=== PATIENT | male | born 1955 | race Caucasian/White ===

== ENCOUNTER 2017-08-25 08:32 | Emergency (ER) | payer MEDICAID ==
[2017-08-25] MEDS ORDERED: NS 1,000 ML IV ONE (09:15)
[2017-08-25 09:16] LABS: ADD DIFF? YES; ADD MORPH? NO; ATYPICAL LYMPHOCYTE FLAG 0 (0-99); FRAGMENT RBC FLAG 0 (0-99); HEMATOCRIT 37.5 % (40.0-51.0); HEMOGLOBIN 10.9 g/dL (13.7-17.5); LEFT SHIFT FLG 20 (0-99); LIPEMIA HEMOLYSIS FLAG 70 (0-99); MEAN CELL HEMOGLOBIN 32.5 pg (27.9-34.1); MEAN CELL HEMOGLOBIN CONCENTR. 29.1 g/dL (32.4-36.7); MEAN CELL VOLUME 111.9 fL (81.5-99.8); MEAN PLATELET VOLUME 9.4 fL (8.7-11.7); PLATELET CLUMPS FLAG 80 (0-99); PLATELET COUNT 187 10^3/uL (150-400); RED BLOOD CELL COUNT 3.35 10^6/uL (4.40-6.38); RED CELL DISTRIBUTION WIDTH 16.3 % (11.5-15.2)
[2017-08-25] MEDS ORDERED: HYDROmorphONE/DILAUDID 1 MG/ML INJ IVP ONE (09:16)
--- NOTE | 2017-08-25 09:16 | EDPHY ---
H & P Stated Complaint: R lower back pain, difficulty urinating since last night HPI/ROS: CHIEF COMPLAINT: Abdominal pain, nausea HISTORY OF PRESENT ILLNESS: This patient is a 62 year old male with history of CLL arriving with his complaining of right groin pain and nausea onset this morning, a few hours prior to arrival. The pain is dull and constant, and waxes and wanes. This does not radiate to his testicle. He has not tried anything for pain relief. He cannot identify any specific palliative or provocative factors. He endorses some diarrhea, but this is not unusual for him. He denies dysuria, hematuria, fever, or vomiting. He denies history of kidney stones. REVIEW OF SYSTEMS: A ten point review of systems was performed and is negative with the exception of the items mentioned in the HPI. Past medical history: 1. Chronic lymphocytic leukemia (followed by [facility]) Past surgical history: Denies. Family history: Noncontributory. Social history: Nonsmoker. Alcohol use in moderation. 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 General Appearance: Alert. Vital signs reviewed. Eyes: Pupils equal and round, no conjunctival injection, no discharge. Anicteric. ENT, Mouth: Mucous membranes are moist, no oropharyngeal erythema or edema. Neck: No lymphadenopathy, supple. Respiratory: Lungs are clear to auscultation; no wheezes, rales, or rhonchi. Cardiovascular: Regular rate and rhythm; no murmur, rub, or gallop. Gastrointestinal: Abdomen is soft and nontender, no masses or organomegaly, bowel sounds normal. No inguinal hernia appreciated. Pulses: 2+ bilateral femoral pulses. Skin: Warm and dry, no rashes on exposed skin, normal color. Back: Nontender to palpation over the thoracolumbar spine. No CVAT. Extremities: No lower extremity edema, no calf tenderness or swelling. 2+ right femoral pulse. Neurological: Alert and oriented. Moving all four extremities easily and equally. Psychiatric: Normal affect. - Personal History Current Tetanus/Diphtheria Vaccine: Unsure Current Tetanus Diphtheria and Acellular Pertussis (TDAP): Unsure - Medical/Surgical History Hx Asthma: No Hx Chronic Respiratory Disease: No Hx Diabetes: No Hx Cardiac Disease: No Hx Renal Disease: No Hx Cirrhosis: No Hx Alcoholism: No Hx HIV/AIDS: No Hx Splenectomy or Spleen Trauma: No Other PMH: CLL - Social History Smoking Status: Never smoked Constitutional: Initial Vital Signs Temperature (C) 36.6 C 08/25/17 08:35 Heart Rate 64 08/25/17 08:35 Respiratory Rate 20 08/25/17 08:35 Blood Pressure 119/77 08/25/17 08:35 O2 Sat (%) 100 08/25/17 08:35 O2 Delivery Mode Room Air O2 (L/minute) 2 Allergies/Adverse Reactions: penicillin G Allergy (Verified 08/26/17 15:09) Home Medications: Medication Instructions Recorded CYCLOBENZAPRINE HCL [Flexeril] 5 mg PO TIDPRN PRN #12 tab 08/25/17 Hydrocodone/APAP 5/325 [Lima 1 - 2 tab PO Q4 PRN #10 tab 08/25/17 5/325 (RX)] Ondansetron Odt [Zofran Odt 4 mg 4 mg PO Q4 PRN #10 tab 08/25/17 (RX)] oxyCODONE/APAP 5/325 [Percocet 1 tab PO Q4 PRN #10 tab 08/26/17 5/325 (*)] Medical Decision Making - Diagnostics EKG Interpretation: The 12 lead EKG was interpreted by myself. See hard copy and/or "tracemaster" electronic copy for interpretation. Imaging: Discussed imaging studies w/ scallop shucker Radiologist ED Course/Re-evaluation: 62 year old male with history of CLL presents with dull right-sided groin pain onset this morning. No tenderness on exam. IV established. Plan for labs including CBC, BMP, UA. Plan to administer 0.5mg IV Dilaudid, 1L IV NS for symptom relief. 10:15 a.m.: Re-evaluated. Patient with mild right lower quadrants/groin pain, improved after Dilaudid and Toradol. We discussed the laboratory findings and the lack of hematuria in his urine sample. He continues to be concerned about a kidney stone and would like to proceed with CT scan of his abdomen and pelvis. Etiology of his pain remains unclear at this point. White blood cells 299,000, increased from 2 months ago. These results were relayed to him. 11:00 Patient's heart rate dipped to the 40s, was 64 at triage. Completed EKG. Rate returned to the upper 50s shortly after the brief episode of bradycardia. He was asymptomatic at the time. 11:[address] Hubbard, radiologist. CT abdomen/pelvis negative for acute processes, lymphadenopathy noted. No nephro or ureterolithiasis. 11:57 Reassessed patient. He complains of increased pain during his CT scan. It has resolved again slightly since then. Currently, he rates his pain at 4/10 severity. I discussed imaging and laboratory results. On reassessment, the patient indicates his hip, right buttock, and/or or thigh as the location of the pain. His at bedside states the pain was localized to his right buttock just below the iliac crest this morning, prior to the presentation in the department. Completed full neurologic assessment. The patient is neurologically intact, sensorimotor equal bilaterally. He is 5/5 bilateral lower extremity strength with testing of hip flexion, hip extension, knee flexion, knee extension, plantar flexion, dorsiflexion, and EHL. His sensation is intact to light and sharp touch over both lower extremities. Reflexes are symmetric. It was my initial impression that his pain was in the lower abdomen and groin with some right flank pain also. My concern was for ureterolithiasis, pyelonephritis, urinary tract infection, appendicitis, and hernia. However, it now seems that his pain is more suggestive of lumbar discogenic pain. He is given prescriptions for Flexeril, Lima, and Zofran. We discussed the use of lidocaine patches. We reviewed the danger signs that should prompt him to be immediately re-evaluated. He will follow up with his primary care physician. - Data Points Laboratory Results: Laboratory Results 08/25/17 Unknown 08/25/17 09:05 Medications Given: Discontinued Medications Hydrocodone Bitart/Acetaminophen (Lima 5/325) 1 tab PO EDNOW ONE Stop: 08/25/17 13:18 Last Admin: 08/25/17 13:20 Dose: 1 tab Hydromorphone HCl (Dilaudid) 0.5 mg IVP EDNOW ONE Stop: 08/25/17 09:17 Last Admin: 08/25/17 09:27 Dose: 0.5 mg Sodium Chloride (Ns) 1,000 mls @ 0 mls/hr IV ONCE ONE; Wide Open PRN Reason: Protocol Stop: 08/25/17 09:16 Last Admin: 08/25/17 09:31 Dose: 1,000 mls Ketorolac Tromethamine (Toradol) 15 mg IVP EDNOW ONE Stop: 08/25/17 09:31 Last Admin: 08/25/17 09:34 Dose: 15 mg Ondansetron HCl (Zofran) 4 mg IVP EDNOW ONE Stop: 08/25/17 09:29 Last Admin: 08/25/17 09:31 Dose: 4 mg Ondansetron HCl (Zofran) 4 mg IVP EDNOW ONE Stop: 08/25/17 12:46 Last Admin: 08/25/17 12:47 Dose: 4 mg Departure - Departure Disposition: Home, Routine, Self-Care Clinical Impression: Right groin pain Abdominal pain Qualifiers: Abdominal location: right lower quadrant Qualified Code(s): R10.31 - Right lower quadrant pain Condition: Good Instructions: Acute Abdominal Pain (ED), Acute Low Back Pain (ED), Groin Pain ( ED) Additional Instructions: 1. Take Lima as prescribed as needed for severe pain. 2. Take Ibuprofen or Tylenol as directed below as needed for pain. Do not take Tylenol with Lima as this medication already contains acetaminophen. Abdominal pain precautions: Sometimes we are unable to diagnose an obvious cause of abdominal pain in the Emergency Department. Based upon our evaluation today, we see no obvious explanation for your pain. Because more serious conditions can be difficult to diagnose early in the course of their presentation, we ask that you return to the Emergency Department in 8-12 hours for a recheck if you are still having pain. This is necessary to exclude the development of a more serious condition such as appendicitis or other intra-abdominal emergency. In the event your pain markedly increases before that time or you develop intractable vomiting or fever return to the Emergency Department immediately. Back pain precautions: Return to the emergency department for severe pain, fever, numbness, difficulty walking or weakness, loss of control of your bowels or bladder, change in location or nature of pain or other concerns. Adult Pain & Fever Control: We recommend Acetaminophen (Tylenol) and Ibuprofen (Motrin,Advil) for pain and fever control. When fever is high or pain severe, both drugs can be used at the same time, but at different intervals. Please note the time differences. Your dose is: Acetaminophen 650mg every 4 to 6 hours Ibuprofen 400mg every 8 hours with food Note: do not take Acetaminophen with Hydrocodone (Vicodin, Lortab) or Oxycodone (Percocet). These medications also contain Acetaminophen. No more than 3000mg of Acetaminophen should be taken in 24 hours (for an adult). Referrals: Sujata Moreland MD [[facility] Primary Care Provider] - As per Instructions Prescriptions: CYCLOBENZAPRINE HCL [Flexeril] 5 mg PO TIDPRN PRN #12 tab PRN Reason: muscle spasm Hydrocodone/APAP 5/325 [Lima 5/325 (RX)] 1 - 2 tab PO Q4 PRN #10 tab PRN Reason: pain Ondansetron Odt [Zofran Odt 4 mg (RX)] 4 mg PO Q4 PRN #10 tab PRN Reason: nausea Report Scribed for: Ann Marie Garcia Report Scribed by: Tiana Gutierrez Date of Report: 08/25/17 Time of Report: 09:25 Physician Review and Approval Statement: 08/25/17 09:15 Portions of this note were transcribed by the medical staff assistant. I, Dr. Ann Marie Garcia, personally performed the history, physical exam, and medical decision- making; and confirmed the accuracy of the information in the transcribed note.
[2017-08-25] MEDS ORDERED: ONDANSETRON 4 MG/2 ML VIAL ONE ×2 (09:17→12:43)
[2017-08-25 09:26] LABS: ADD SCAN? NO
[2017-08-25 09:26] LABS: ANION GAP 11 mEq/L (8-16); CALCIUM 8.8 mg/dL (8.5-10.4); CARBON DIOXIDE 22 mEq/l (22-31); CHLORIDE 108 mEq/L (97-110); CREATININE 0.9 mg/dL (0.7-1.3); GLOMERULAR FILTRATION RATE > 60; GLUCOSE 136 mg/dL (70-100); POTASSIUM 4.4 mEq/L (3.5-5.2); SODIUM 141 mEq/L (134-144)
[2017-08-25] MEDS ORDERED: ONDANSETRON 4 MG/2 ML VIAL IVP ONE ×2 (09:28→12:45)
[2017-08-25] MEDS ORDERED: KETOROLAC 15 MG/1 ML SDV IVP ONE (09:30)
[2017-08-25 09:34] LABS: COLOR YELLOW; LEUKOCYTE ESTERASE,URINE NEGATIVE (NEGATIVE); NITRITE,URINE NEGATIVE (NEGATIVE)
[2017-08-25 10:26] LABS: PLATELET ESTIMATE ADEQUATE (ADEQ); SMUDGE CELLS 2+
[2017-08-25 10:27] LABS: STOMATOCYTES 1+
--- NOTE | 2017-08-25 11:04 | CPEKG ---
Heart Rate: 58 RR Interval: 1034 P-R Interval: 152 QRSD Interval: 104 QT Interval: 468 QTC Interval: 460 P Dolphin: 38 QRS Dolphin: 43 T Wave Dolphin: 54 EKG Severity - NORMAL ECG - EKG Impression: SINUS RHYTHM Electronically Signed By: Ann Marie Garcia 25-Aug-2017 16:22:53
[2017-08-25] MEDS ORDERED: HYDROCODONE/APAP 5/325 TAB PO ONE (13:17)
[2017-08-25 14:10] VITALS: BP 119/67; PULSE 69; RESP 18; TEMP 98.2; O2SAT 98
== END 2017-08-25 15:22 | disposition home or self-care (01) ==
DX: R10.31 Right lower quadrant pain (principal); E86.9 Volume depletion, unspecified; Z85.6 Personal history of leukemia
CPT/HCPCS: 96374; J1170; J1885; J2405

== ENCOUNTER 2017-08-26 14:54 | Emergency (ER) | payer MEDICAID ==
[2017-08-26 15:08] VITALS: RESP 16; TEMP 98.4; O2SAT 94
--- NOTE | 2017-08-26 15:39 | EDPHY ---
H & P Time Seen by Provider: 08/26/17 15:25 HPI/ROS: CHIEF COMPLAINT: Right abdominal and back pain HISTORY OF PRESENT ILLNESS: The patient is a 62 y/o male with a history of CLL, complaining of right sided back pain since yesterday morning. Onset of right-sided back pain yesterday morning while he was in bed. The pain increases with movement and is alleviated when he remains still. He now has a tingling sensation of his right anterior thigh the. He was in this ED yesterday and had an abdominopelvic CT study preformed. He was prescribed Huddleston, which has provided some relief. After returning home he had less pain while lying down. There is still right back and leg pain while walking or sitting. 3 days before the pain began, he did carry several heavy water jugs. Denies buttock pain, pain radiating down the entire right leg, weakness, fever or other pertinent symptoms. Prior medical records reviewed including ED visit with Dr. Garcia on 08/25/17. REVIEW OF SYSTEMS: Aside from elements discussed in the HPI, a comprehensive 10-point review of systems was reviewed and is negative. Past Medical/Surgical History: Chronic lymphocytic leukemia Social History: Retired, nonsmoker, Smoking Status: Never smoked Physical Exam: General Appearance: Alert, a does not appear in pain Eyes: Pupils equal and round, no conjunctival pallor ENT, Mouth: Mucous membranes moist Neck: Normal inspection Respiratory: Lungs are clear to auscultation Cardiovascular: Regular rate and rhythm Gastrointestinal: Abdomen is soft and non-tender Back: Normal inspection, no tenderness, right paraspinous pain with ROM Neurological: A&O, 2+ patellar reflexes, motor 5/5 including dorsiflexion on his right foot Skin: Warm and dry, no rash Extremities: Normal inspection Psychiatric: Mood and affect normal Constitutional: Initial Vital Signs Temperature (C) 36.9 C 08/26/17 15:05 Heart Rate 70 08/26/17 15:05 Respiratory Rate 16 08/26/17 15:05 Blood Pressure 128/72 H 08/26/17 15:05 O2 Sat (%) 94 08/26/17 15:05 O2 Delivery Mode Room Air Allergies/Adverse Reactions: penicillin G Allergy (Verified 08/26/17 15:09) Home Medications: Medication Instructions Recorded CYCLOBENZAPRINE HCL [Flexeril] 5 mg PO TIDPRN PRN #12 tab 08/25/17 Hydrocodone/APAP 5/325 [Huddleston 1 - 2 tab PO Q4 PRN #10 tab 08/25/17 5/325 (RX)] Ondansetron Odt [Zofran Odt 4 mg 4 mg PO Q4 PRN #10 tab 08/25/17 (RX)] oxyCODONE/APAP 5/325 [Percocet 1 tab PO Q4 PRN #10 tab 08/26/17 5/325 (*)] Medical Decision Making ED Course/Re-evaluation: The patient is a 62 y/o male presenting with right-sided back pain. He has normal motor and a 2+ patellar reflex. His symptoms are c/w right-sided sciatica. 600mg PO Motrin and Lidocaine patch administered. Reassessed patient and discussed taking ibuprofen and using a Lidocaine patch for his back pain. I have also prescribed him Percocet for severe back pain. Return precautions provided; patient is comfortable with this plan. Differential Diagnosis: Differential diagnosis for back pain includes muscular pain, herniated disc, epidural abscess, discitis, spine fracture, intra-abdominal causes and urinary tract infection. - Data Points Medications Given: Discontinued Medications Ibuprofen (Motrin) 600 mg PO EDNOW ONE Stop: 08/26/17 15:50 Last Admin: 08/26/17 16:03 Dose: 600 mg Lidocaine (Lidoderm 5%) 1 ea TD EDNOW ONE Stop: 08/26/17 15:50 Last Admin: 08/26/17 16:04 Dose: 1 ea Departure - Departure Disposition: Home, Routine, Self-Care Clinical Impression: Sciatica Qualifiers: Laterality: right Qualified Code(s): M54.31 - Sciatica, right side Condition: Good Instructions: Low Back Strain (ED) Additional Instructions: Take ibuprofen, 600mg every 6-8 hours, as needed for pain Use a Lidocaine patch, you can buy these at a pharmacy. Take Huddleston as prescribed, only if the Lidocaine and ibuprofen are not providing relief. Return to the emergency department for severe pain, fever, numbness, difficulty walking, change in location or nature of pain or other concerns. Referrals: LILY REYES [Primary Care Provider] - As per Instructions Prescriptions: oxyCODONE/APAP 5/325 [Percocet 5/325 (*)] 1 tab PO Q4 PRN #10 tab PRN Reason: pain Report Scribed for: Radha Vieyra Report Scribed by: Martha Alcala Date of Report: 08/26/17 Time of Report: 15:39 Physician Review and Approval Statement: 08/26/17 15:39 Portions of this note were transcribed by a medical coding auditor. I personally performed a history, physical exam, medical decision making, and confirmed accuracy of information the transcribed note.
[2017-08-26] MEDS ORDERED: LIDOCAINE 5% 1 EA PATCH TD ONE (15:49)
[2017-08-26] MEDS ORDERED: IBUPROFEN 600 MG TAB PO ONE (15:49)
[2017-08-26 16:27] VITALS: BP 124/77; PULSE 76
[2017-08-26] MEDS ORDERED: PATCH REMOVAL 1 EA PATCH TD SCH (21:00)
== END 2017-08-26 16:26 | disposition home or self-care (01) ==
DX: M54.31 Sciatica, right side (principal)

== ENCOUNTER → 2017-09-12 | Outpatient (CLI) | payer MEDICAID ==
[~2017-09-12] MED LIST: GADOBUTROL 10 ML VIAL IVP ONE
== END ==
LOC: FIMAGING 19:18
PROVIDERS: ATTEND Internal Medicine Hematology & Oncology
DX: M51.36 Other intervertebral disc degeneration, lumbar region (principal); R59.0 Localized enlarged lymph nodes; C91.10 Chronic lymphocytic leukemia of B-cell type not having achieved remission
CPT/HCPCS: A9585

== ENCOUNTER 2018-01-12 11:43 | Inpatient (IN) | payer MEDICAID ==
[2018-01-12 12:30] LABS: PLATELET COUNT 80 10^3/uL (150-400)
--- NOTE | 2018-01-12 12:41 | EDPHY ---
H & P Stated Complaint: cough/ subjective fever last week Time Seen by Provider: 01/12/18 11:53 HPI/ROS: CHIEF COMPLAINT: Cough, shortness of breath HISTORY OF PRESENT ILLNESS: 62-year-old male with CLL presents with a one-week history of cough. Onset of nasal congestion and a dry cough 1 week ago. Associated with gradually increasing shortness of breath. The shortness of breath occurs when walking up 2 flights of stairs. He needs to stop transiently and then is able to continue walking. Also has generalized weakness. No prior history of severe anemia. No fever or chills. No chest pain, bloody stools or black stools. REVIEW OF SYSTEMS: complete 10 point ROS negative except at noted in the HPI - Personal History Current Tetanus/Diphtheria Vaccine: Yes - Medical/Surgical History Hx Asthma: No Hx Chronic Respiratory Disease: No Hx Diabetes: No Hx Cardiac Disease: No Hx Renal Disease: No Hx Cirrhosis: No Hx Alcoholism: No Hx HIV/AIDS: No Hx Splenectomy or Spleen Trauma: No Other PMH: CLL, anemia - Social History Smoking Status: Never smoked - Physical Exam Exam: General Appearance: Alert, pleasant, pale Eyes: Pupils equal and round, conjunctival pallor ENT, Mouth: Mucous membranes moist Neck: Normal inspection Respiratory: Lungs are clear to auscultation Cardiovascular: Regular rate and rhythm Gastrointestinal: Abdomen is soft and nontender Neurological: A&O, nonfocal exam Skin: Warm and dry, no rash Extremities: Nontender, no pedal edema Psychiatric: Mood and affect normal Constitutional: Initial Vital Signs Temperature (C) 36.7 C 01/12/18 11:48 Heart Rate 95 01/12/18 11:48 Respiratory Rate 18 01/12/18 11:48 Blood Pressure 99/56 L 01/12/18 11:48 O2 Sat (%) 96 01/12/18 11:48 O2 Delivery Mode Room Air Allergies/Adverse Reactions: penicillin G Allergy (Verified 01/12/18 11:48) Home Medications: Medication Instructions Recorded Herbals/Supplements -Info Only 1 ea PO DAILY 01/12/18 Medical Decision Making - Diagnostics Imaging Results: Chest x-ray independently reviewed by me reveals a lingular infiltrate. ED Course/Re-evaluation: This patient presents with URI symptoms and cough, associated with exertional shortness of breath. Clinical scenario suggests anemia and pneumonia. Chest x-ray reveals a lingular infiltrate. He is nontoxic-appearing and oxygen saturation is 93% on room air. Does not meet SIRS criteria. Hct 20, risks and benefits discussed with patient, he agrees with transfusion. 1 u PRBC ordered. Blood cultures drawn and Rocephin and Zithromax given for pneumonia. Stable throughout his emergency department stay. The hospitalist service was consulted for admission. Differential Diagnosis: Differential diagnosis includes though it is not limited to pneumonia, pneumothorax, pulmonary embolism, aortic dissection, pericarditis, acute coronary syndrome. - Data Points Laboratory Results: Laboratory Results 01/12/18 12:20 01/12/18 12:20 01/12/18 13:00 Patient ABO/Rh Pending Rh Phenotype Pending Antibody Screen POSITIVE Antibody Identification UNDETERMINED Antibody ID Referred Pending Red Cell Ag Pheno DNA Pending RICHARD, IgG Specific IGG NEGATIVE (NEGATIVE) RICHARD, IgG Interpret Pending RICHARD, Polyspecific POSITIVE H (NEGATIVE) RICHARD, Poly Interpret Pending RICHARD, Complement Interp Pending Crossmatch See Detail Crossmatch IS Only See Detail Enhanced Crossmatch See Detail Medications Given: Acetaminophen (Tylenol) 650 mg PO Q4HRS PRN PRN Reason: Pain, Mild/Fever, Can Take PO Stop: 07/11/18 15:36 Last Admin: 01/12/18 19:58 Dose: 650 mg Folic Acid (Folic Acid) 1 mg PO DAILY DIANA Stop: 07/11/18 16:29 Last Admin: 01/12/18 17:02 Dose: 1 mg Prednisone (Prednisone) 60 mg PO DAILY DIANA Stop: 07/11/18 16:59 Last Admin: 01/12/18 17:02 Dose: 60 mg Discontinued Medications Azithromycin (Zithromax) 500 mg PO EDNOW ONE PRN Reason: Protocol Stop: 01/12/18 13:02 Last Admin: 01/12/18 13:19 Dose: 500 mg Ceftriaxone Sodium/Dextrose (Rocephin 1 Gm (Premix)) 50 mls @ 100 mls/hr IV EDNOW ONE PRN Reason: Protocol Stop: 01/12/18 13:30 Last Admin: 01/12/18 13:18 Dose: 50 mls Sodium Chloride (Ns) 1,000 mls @ 125 mls/hr IV CONT DIANA Stop: 01/12/18 23:44 Last Admin: 01/12/18 16:57 Dose: 1,000 mls Departure - Departure Disposition: [facility] Inpatient Acute Clinical Impression: Severe anemia Pneumonia Qualifiers: Pneumonia type: due to unspecified organism Laterality: left Lung location: lower lobe of lung Qualified Code(s): J18.1 - Lobar pneumonia, unspecified organism Condition: Fair
[2018-01-12] MEDS ORDERED: AZITHROMYCIN 250 MG TAB PO ONE (13:01)
[2018-01-12] MEDS ORDERED: ONDANSETRON DISINTEGRATING 4 MG TAB PO PRN (15:37)
[2018-01-12] MEDS ORDERED: ACETAMINOPHEN 325 MG TAB PO PRN (15:37)
[2018-01-12] MEDS ORDERED: ONDANSETRON 4 MG/2 ML VIAL IVP PRN (15:37)
[2018-01-12] MEDS ORDERED: NS 1,000 ML IV SCH (15:45)
[2018-01-12] MEDS: predniSONE 20 MG TAB PO SCH (17:02)
[2018-01-12] MEDS: FOLIC ACID 1 MG TAB PO SCH (17:02)
--- NOTE | 2018-01-12 17:07 | GHP ---
[f rep st] HISTORY AND PHYSICAL DATE OF ADMISSION: 01/12/2018 SUBJECTIVE: The patient is a 62-year-old gentleman with 2-year history of untreated CLL, who present s to the hospital with dyspnea and cough. He has been noted to have dry cough going on for about a w [place]. He has not had fever, chills. He has had shortness of breath. He has had no melena, no bright red blood per rectum, and no hematemesis. No coffee-ground emesis. He has not been tried on transf usions in the past. He has not had chest pain. REVIEW OF SYSTEMS: Complete 10-point review of systems conducted and negative except as noted in the HPI. PAST MEDICAL HISTORY: CLL, not on therapy. ALLERGIES: Penicillin G. HOME MEDICATIONS: None. He does note he has been taking some coffee enemas, as this is apparently e ffective for CLL according to some people on the internet. 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 He drinks occasional alcohol, does not smoke cigarettes. FAMILY HISTORY: Reviewed and unremarkable. PHYSICAL EXAMINATION: VITAL SIGNS: Temp 36.7, blood pressure 99/56, pulse 95, breathing 18 times a minute, 96% on room air. GENERAL: Pale, in no acute distress. HEENT: Sclerae anicteric. Oropharynx clear. Mucous membranes are moist. NECK: Supple without lymphadenopathy or JVD. LUNGS: Clear to auscultation bilaterally, with some crackles in the left axilla. HEART: S1, S2. ABDOMEN: Soft, nontender, nondistended. EXTREMITIES: Lower extremities without edema. Calves are nontender. SKIN: Without rash. NEUROLOGIC: Nonfocal. LABORATORY DATA: White count is 572; his last white count was about a month ago, it was 433; a month prior to that, it was 380; and has been steadily ascending since being 94 in March. Hemoglobin is 4. 6; it was 7.2 a month ago. Platelets are 80. MCV is elevated at 132.9. He has a lymphocyte predomi nance. He does have neutrophilia as well. Venous lactate 0.9. Sodium 143, potassium 4.2, chloride 109, bicarb 21, BUN 14, creatinine 1.1. IMAGING STUDIES: Chest x-ray interpreted by me shows possible left lingular infiltrate. I have discussed the case with Dr. Kiersten Vieyra. ASSESSMENT AND PLAN: 62-year-old gentleman with chronic lymphocytic leukemia, presents with the acut e on chronic anemia and likely community-acquired pneumonia. 1. Acute acquired pneumonia. The patient has indeterminate chest x-ray, but I recognize his degree of immunocompromise. I think it is reasonable to treat him for community-acquired pneumonia with cef triaxone and azithromycin. Blood cultures have been drawn. He is not septic. 2. Anemia. This is likely secondary to poor production. He has no signs of blood loss. He is foll owing his hemoglobin over time. It has steadily decreased from 13 in January of 2017 to 4.6 today. I wi ll transfuse him a couple of units of packed cells. 3. Thrombocytopenia. This is likely secondary to chronic lymphocytic leukemia. We will follow. Th is represents a contraindication to pharmacologic deep venous thrombosis prophylaxis. 4. Chronic lymphocytic leukemia. The patient's white count is markedly elevated with now symptomati c anemia. May be a candidate for consideration of ibrutinib therapy which has been discussed in the past. Oncology will see him. DISPOSITION: Inpatient status. /[id number]
--- NOTE | 2018-01-12 17:17 | GCON ---
[f rep st] CONSULTATION HEMATOLOGY ONCOLOGY NOTE DATE OF CONSULTATION: 01/12/2018 REASON FOR CONSULTATION: 1. Chronic lymphocytic leukemia. 2. Hemolytic anemia. HISTORY OF PRESENT ILLNESS: The patient is a pleasant 62-year-old gentleman who has been followed by my partner, Dr. Naif Mckeon. The patient was diagnosed with Miller stage I CLL in April of 2015. He presented with lymphocytosis. The patient had a subsequent peripheral blood flow cytometry which confirmed the diagnosis of CLL. C ytogenetics showed an 11 Q minus in approximately 86% of cells and trisomy 12 in 30% of cells. His C T scan revealed moderate adenopathy with no splenomegaly. The patient has had a steady rise in his white blood cell count. He has declined conventional treatm ent and has been taking CBD oil and performing coffee enemas to treat his CLL. He was last seen by Dr. Mckeon in October of this year, at which time ibrutinib therapy was recomm ended. The patient has not started this therapy. The patient presented to the hospital today with 1-week history of a nonproductive cough. He had a l ow-grade fever. He did not have any chills. He had progressive exertional dyspnea. In the emergency department, a CBC was drawn which revealed a white count of 571,000, hemoglobin of 4 .6, hematocrit of 20.6, platelet count of 80,000. His differential shows a predominance of lymphocyt es consistent with his diagnosis of CLL. Further testing reveals a positive Johnna test. The patient has been admitted to the hospital. IV antibiotic therapy has been started (ceftriaxone a nd azithromycin). In the emergency department, a chest x-ray was performed which revealed a small nodular density in th e right hemithorax for which followup was recommended. When seen this evening, he is comfortable. He denies chest pain. He denies dyspnea at rest. He den ies any active fevers or chills. He denies abdominal pain or bloating. He denies lymphadenopathy. PAST MEDICAL HISTORY: Hypercholesterolemia. FAMILY MEDICAL HISTORY: The patient's brother and mother had coronary artery disease. His father mayer d malignancy, type unknown. SOCIAL HISTORY: The patient is a nonsmoker. He drinks a few alcoholic beverages a day. He is marri ed to [place]. 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 He has no children. REVIEW OF SYSTEMS: As outlined above. Remainder of 10-point review of systems otherwise negative. PHYSICAL EXAM: GENERAL: The patient is resting comfortably in bed. He is in no acute distress. He is breathing comfortably. HEENT: Conjunctival pallor is present with no scleral icterus. HEART: Regular without murmur. LUNGS: Clear bilaterally. ABDOMEN: Obese. Exam is somewhat limited by hector dy habitus. Spleen is nonpalpable. SKIN: No rash, ecchymosis, or petechiae. NEUROLOGIC: Patient is alert, oriented, and appropriate. IMAGING AND LABORATORY STUDIES: As outlined above. Chest x-ray as outlined above. DIAGNOSES: 1. Chronic lymphocytic leukemia (untreated). 2. 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 3. Cough with abnormal chest x-ray finding. 4. Small nodular density right hemithorax of uncertain etiology visualized on chest x-ray. The patient is a 62-year-old gentleman with untreated chronic lymphocytic leukemia, who presents with symptomatic anemia. He appears to have developed autoimmune hemolytic anemia based on his positive Johnna test. I have sent a serum bilirubin, LDH, haptoglobin, reticulocyte to evaluate this further. His case was discussed with Dr. Noonan of the hospitalist service, as well as with the blood bank. H is positive Johnna test makes his crossmatch difficult, but the blood bank indicates they have 2 comp atible units for the patient ready for transfusion. Transfusion has been ordered by Dr. Noonan. I a gree with transfusion, given the fairly severe degree of the patient's anemia and its symptomatic collette ure. I discussed the patient's diagnosis with him at length. At this point, he is willing to consider con ventional treatment with ibrutinib and would be willing to start this in the outpatient setting once discharged. He will follow up with Dr. Mckeon. I will notify Dr. Mckeon of his admission. Though the patient does have a very high lymphocytosis, this has been a gradual development and does not require urgent treatment at this time. Of greater concern is the development of hemolytic anemia. I have recommended the institution of pre dnisone 60 mg daily for 4-5 days. I have also recommended we start supplemental folic acid. The vee e effect profile of prednisone was reviewed. The patient is willing to take prednisone. It will be started this evening. He will be monitored closely. He will follow up with Dr. Mckeon upon discha rge to discuss the initiation of ibrutinib therapy. He had multiple questions which were answered. Total time for today's visit was approximately 45 minutes of which greater than 50% was spent adolescent counselor ing and care coordination. /[id number]/MODL
--- NOTE | 2018-01-12 17:54 | PDMN ---
Medical Necessity Medical necessity: C/M review: est. > 2 MN LOS for acute likely community acquired pneumonia, anemia likely secondary to poor production, , thrombocytopenia likely secondary to chronic lymphocytic leukemia requiring planned Oncology consult, 2 units PRBCs, IV fluids, ongoing Azithramycin, IV Ceftriaxone, pulse oximetry, comorbid untreated chronic lymphocytic leukemia per H/P.
[2018-01-13 07:48] LABS: PLATELET COUNT 72 10^3/uL (150-400)
[2018-01-13 07:57] LABS: INR 1.08 (0.83-1.16); PROTIME(PATIENT) 14.2 SEC (12.0-15.0)
[2018-01-13] MEDS ORDERED: Herbals/Supplements -Info Only PO SCH (09:00)
[2018-01-13] MEDS ORDERED: ENOXAPARIN 40 MG/0.4 ML SYR SC SCH (09:00)
--- NOTE | 2018-01-13 10:16 | HOSPPROG ---
Hospitalist Progress Note Assessment/Plan: 62 yo M w CLL admitted w fatigue, anemia, CAP CAP: ceftriaxone/azithro CLL: markedly elevated white count w anemia and thrombocytopenia pred and folate started needs outpt therapy d/w dr holliday hemolytic anemia: pred started give add'l unit packed cells now proph: no LMWH given thrombocytopenia dispo: inpt Subjective: case d/w dr holliday Objective: Vital Signs Temp Pulse Resp BP Pulse Ox 36.8 C 74 16 98/62 L 96 01/13/18 07:25 01/13/18 07:25 01/13/18 07:25 01/13/18 07:25 01/13/18 07:25 Microbiology 01/12/18 16:40 Respiratory Panel (PCR) - Final Nasal, Sinus - Swab No Organism Detected Laboratory Results 01/13/18 07:38 01/13/18 07:38 01/12/18 01/13/18 01/14/18 05:59 05:59 05:59 Intake Total 2225 Output Total 300 Balance 1925 PT 14.2 SEC (12.0-15.0) 01/13/18 07:38 INR 1.08 (0.83-1.16) 01/13/18 07:38 - Physical Exam Constitutional: no apparent distress, appears nourished Eyes: PERRL, anicteric sclera Ears, Nose, Mouth, Throat: moist mucous membranes, hearing normal Cardiovascular: regular rate and rhythym, no murmur, rub, or gallop Respiratory: other (crackles L base, no wheeze, good air movement) Gastrointestinal: normoactive bowel sounds, soft, non-tender abdomen Genitourinary: no bladder fullness, No adames in urethra Skin: warm, normal color Musculoskeletal: full muscle strength, no muscle tenderness Neurologic: AAOx3, sensation intact bilaterally ICD10 Worksheet Patient Problems: Problems Problem Status Onset Pneumonia Acute Severe anemia Acute Abdominal pain Acute Right groin pain Acute
[2018-01-13] MEDS: AZITHROMYCIN IV 500 MG in NS 250 ML IV SCH (10:22)
[2018-01-13] MEDS: FOLIC ACID 1 MG TAB PO SCH (10:29)
[2018-01-13] MEDS: predniSONE 20 MG TAB PO SCH (10:29)
--- NOTE | 2018-01-13 11:14 | SOAPPROG ---
SOAP Progress Note Assessment/Plan: Assessment: 1.CLL 2.Possible CAP 3.Hemolytic anemia, Johnna positive, Toro syndrome Plan:Transfuse 1 more unit prbc, cont pred folate, possibly home soon with op follow up, needs treatment. Poor retic response prob related to marrow involvement. May need Rituxan if not responding 01/13/18 11:10 Subjective: Feels better post txn Objective: Vital Signs Temp Pulse Resp BP Pulse Ox 98.2 F 74 16 98/62 L 96 01/13/18 07:25 01/13/18 07:25 01/13/18 07:25 01/13/18 07:25 01/13/18 07:25 Microbiology 01/12/18 16:40 Respiratory Panel (PCR) - Final Nasal, Sinus - Swab No Organism Detected Laboratory Results 01/13/18 07:38 01/13/18 07:38 01/12/18 01/13/18 01/14/18 05:59 05:59 05:59 Intake Total 2225 Output Total 300 Balance 1925 PT 14.2 SEC (12.0-15.0) 01/13/18 07:38 INR 1.08 (0.83-1.16) 01/13/18 07:38 Physical Exam - Physical Exam General Appearance: alert, no apparent distress, other (pale) Respiratory: lungs clear Cardiac/Chest: regular rate, rhythm Abdomen: normal bowel sounds, non-tender ICD10 Worksheet Patient Problems: Problems Problem Status Onset Pneumonia Acute Severe anemia Acute Abdominal pain Acute Right groin pain Acute
--- NOTE | 2018-01-13 15:49 | ASMTCMCOM ---
CM Note CM Note Notes: Pt has been admitted with possible PNA and anemia. He has a hx of CLL. Will receive transfusion and IV ABX. Anticipate he will transition to po ABX and d/c without any CM needs. CM will be available for any change in needs. Date Signed: 01/13/2018 03:49 PM Electronically Signed By:DANDRE Otero
[2018-01-14 04:11] LABS: PLATELET COUNT 72 10^3/uL (150-400)
[2018-01-14 08:20] VITALS: BP 95/55
[2018-01-14] MEDS: predniSONE 20 MG TAB PO SCH (08:46)
[2018-01-14] MEDS: FOLIC ACID 1 MG TAB PO SCH (08:46)
--- NOTE | 2018-01-14 09:50 | HOSPPROG ---
Hospitalist Progress Note Assessment/Plan: 62 yo M w CLL admitted w fatigue, anemia, CAP CAP: ceftriaxone/azithro CLL: markedly elevated white count w anemia and thrombocytopenia pred and folate started needs outpt therapy d/w dr holliday hemolytic anemia: pred started give add'l unit packed cells now proph: no LMWH given thrombocytopenia dispo: home today > 30 minuyes Subjective: feels well. amenable to dc. small amount of diarrhea overnight, no abdominal Objective: Vital Signs Temp Pulse Resp BP Pulse Ox 36.8 C 78 16 95/55 L 93 01/14/18 08:18 01/14/18 08:18 01/14/18 08:18 01/14/18 08:18 01/14/18 08:18 Laboratory Results 01/14/18 03:53 01/14/18 03:53 01/13/18 01/14/18 01/15/18 05:59 05:59 05:59 Intake Total 2225 1100 Output Total 300 Balance 1925 1100 PT 14.2 SEC (12.0-15.0) 01/13/18 07:38 INR 1.08 (0.83-1.16) 01/13/18 07:38 - Physical Exam Constitutional: no apparent distress, appears nourished Eyes: PERRL, anicteric sclera Ears, Nose, Mouth, Throat: moist mucous membranes, hearing normal Cardiovascular: regular rate and rhythym, no murmur, rub, or gallop Respiratory: no respiratory distress, other (crackles L base) Gastrointestinal: normoactive bowel sounds, soft, non-tender abdomen Genitourinary: no bladder fullness, No adames in urethra Skin: warm, normal color Musculoskeletal: full muscle strength Neurologic: AAOx3, sensation intact bilaterally Psychiatric: interacting appropriately ICD10 Worksheet Patient Problems: Problems Problem Status Onset Pneumonia Acute Severe anemia Acute Abdominal pain Acute Right groin pain Acute
--- NOTE | 2018-01-14 10:13 | GDS ---
[f rep st] DISCHARGE SUMMARY DISCHARGE DIAGNOSES: 1. Chronic lymphocytic leukemia. 2. Autoimmune hemolytic anemia. 3. Community-acquired pneumonia. Please see admission history and physical by Dr. Amado Noonan. The patient presented with shortnes s of breath. He was found to have a low hemoglobin of 4.6. This is without evidence of bleeding. R ecent outpatient Johnna test was positive. He received 3 units of packed cells with a good bump in h is hematocrit. His white count was markedly elevated at 572,000. This has been trending up steadily since 2014 when he was diagnosed with CLL. He has thus far not been treated. Chest x-ray did demon strate a mild left lower lobe infiltrate. He did have a cough and crackles in that region so he was treated for community-acquired pneumonia. Blood cultures were negative. The patient did not have se psis. He is discharged home on prednisone with plans to change his outpatient oncology followup from next week to this week. He is also given a prescription for lactate and levofloxacin. He is penici llin allergic. He has followup with Oncology. /[id number]/MODL
[2018-01-14] MEDS: AZITHROMYCIN IV 500 MG in NS 250 ML IV SCH (10:23)
--- NOTE | 2018-01-14 10:31 | ASMTLACE ---
LACE Length of stay for Answers: 2 days current admission Comorbidities - select Answers: Any tumor (including all that apply lymphoma or leukemia) # of Emergency department Answers: 1-2 visits in the last 6 months Score: 5 Date Signed: 01/14/2018 10:30 AM Electronically Signed By:Claudine Taveras RN
--- NOTE | 2018-01-14 10:32 | ASMTCMCOM ---
CM Note CM Note Notes: Chart reviewed. Patient medically ready for discharge to home. Changed to oral antibiotics. No needs identified at this time. CM available should need arise. Plan: Home without needs Date Signed: 01/14/2018 10:32 AM Electronically Signed By:Claudine Taveras RN
--- NOTE | 2018-01-14 11:22 | SOAPPROG ---
SOAP Progress Note Assessment/Plan: Assessment: 1.CLL 2.Possible CAP 3.Hemolytic anemia, Johnna positive, Toro syndrome. Hemoglobin 7 today Plan:D/C today on prednisone 60 mg daily, have recommended follow up with Dr Mckeon this week 01/13/18 11:10 01/14/18 11:20 Subjective: Feels ok Objective: Vital Signs Temp Pulse Resp BP Pulse Ox 98.3 F 78 16 95/55 L 93 01/14/18 08:18 01/14/18 08:18 01/14/18 08:18 01/14/18 08:18 01/14/18 08:18 Laboratory Results 01/14/18 03:53 01/14/18 03:53 01/13/18 01/14/18 01/15/18 05:59 05:59 05:59 Intake Total 2225 1100 Output Total 300 Balance 1925 1100 PT 14.2 SEC (12.0-15.0) 01/13/18 07:38 INR 1.08 (0.83-1.16) 01/13/18 07:38 Physical Exam - Physical Exam General Appearance: alert, no apparent distress ICD10 Worksheet Patient Problems: Problems Problem Status Onset Pneumonia Acute Severe anemia Acute Abdominal pain Acute Right groin pain Acute
== END 2018-01-14 12:31 | disposition home or self-care (01) | DRG 139 ==
LOC: F1N 13:47
PROVIDERS: ADMIT Internal Medicine; ATTEND Internal Medicine
PROC: 30233N1 Transfusion of Nonautologous Red Blood Cells into Peripheral Vein, Percutaneous Approach (ICD-10-PCS; principal; 2018-01-12)
DX: J18.8 Other pneumonia, unspecified organism (principal); C91.10 Chronic lymphocytic leukemia of B-cell type not having achieved remission; D69.59 Other secondary thrombocytopenia; D59.1 Other autoimmune hemolytic anemias; Z88.0 Allergy status to penicillin
CPT/HCPCS: 83010-90; 86870-90; 86922-90; 96365; 99001-90; J0456; J0696; J7512; P9016

== ENCOUNTER 2018-06-15 20:03 | Emergency (ER) | payer MEDICAID ==
[2018-06-15] MEDS ORDERED: CLINDAMYCIN 150 MG CAP PO ONE (21:34)
--- NOTE | 2018-06-15 21:39 | EDPHY ---
H & P Time Seen by Provider: 06/15/18 20:59 HPI/ROS: CHIEF COMPLAINT: Right eye irritation and left lower dental pain HISTORY OF PRESENT ILLNESS: Patient is a 63-year-old male here with complaint of left lower dental pain for the last week. Denies any facial swelling or trouble swallowing or fever. Was no injury to the face her dentition. Additionally reports right eye purulent discharge for the last 3 days. Denies any vision changes or pain with movement of his eye. REVIEW OF SYSTEMS: Constitutional: No fever, no chills. Eyes: No discharge. ENT: No sore throat. Cardiovascular: No chest pain, no palpitations. Respiratory: No cough, no shortness of breath. Gastrointestinal: No abdominal pain, no vomiting. Genitourinary: No hematuria. Musculoskeletal: No back pain. Skin: No rashes. Neurological: No headache. Smoking Status: Never smoked Physical Exam: General Appearance: Alert and no distress. Eyes: Pupils equal and round right-sided scleral injection with purulent discharge. No periorbital erythema. Respiratory: Chest is nontender, lungs are clear to auscultation. Cardiac: regular rate and rhythm. Gastrointestinal: Abdomen is soft and nontender, no masses, bowel sounds normal. Musculoskeletal: Neck is supple and nontender. Extremities have full range of motion and are nontender. Skin: No rashes or lesions. Dental: Normal appearing dentition Constitutional: Initial Vital Signs Temperature (C) 36.8 C 06/15/18 20:09 Heart Rate 97 06/15/18 20:09 Respiratory Rate 20 06/15/18 20:09 Blood Pressure 142/73 H 06/15/18 20:09 O2 Sat (%) 93 06/15/18 20:09 O2 Delivery Mode Room Air Allergies/Adverse Reactions: penicillin G Allergy (Verified 06/15/18 20:07) Home Medications: Medication Instructions Recorded Clindamycin HCl [Clindamycin] 300 mg PO TID #30 cap 06/15/18 Ibrutinib [Imbruvica] 06/15/18 Medical Decision Making ED Course/Re-evaluation: Patient here with dental pain and conjunctivitis. Dental pain is likely due to infections of his started on clindamycin 300 mg 3 times a day for 10 days. Condition is started on ophthalmic antibiotic drops for conjunctivitis. Indication for return were discussed. No evidence of facial abscess, periorbital cellulitis, glaucoma. - Data Points Medications Given: Discontinued Medications Clindamycin (Clindamycin) 300 mg PO EDNOW ONE PRN Reason: Protocol Stop: 06/15/18 21:35 Last Admin: 06/15/18 21:51 Dose: 300 mg Polymyxin/Trimethoprim Sulfate (Polytrim Opht Drops) 1 drops RTEYE Q6HRS DIANA Stop: 07/16/18 00:00 Last Admin: 06/15/18 22:16 Dose: 1 btl Departure - Departure Disposition: Home, Routine, Self-Care Clinical Impression: Pain, dental, Conjunctivitis Condition: Good Instructions: Conjunctivitis (ED) Referrals: Naif Mckeon MD [Primary Care Provider] - As per Instructions Prescriptions: Clindamycin HCl [Clindamycin] 300 mg PO TID #30 cap
[2018-06-15 22:37] VITALS: BP 139/88
[2018-06-16] MEDS ORDERED: POLYMYXIN B SULFATE/TMP 10 ML OPHT.BTL RTEYE SCH
== END 2018-06-15 22:37 | disposition home or self-care (01) ==
DX: H10.9 Unspecified conjunctivitis (principal); K08.89 Other specified disorders of teeth and supporting structures

== ENCOUNTER → 2018-08-09 | Outpatient (CLI) | payer MEDICAID | LOC: FIMAGING 10:48 | PROVIDERS: ATTEND Internal Medicine Hematology & Oncology | DX: Z13.820 Encounter for screening for osteoporosis (principal); C91.10 Chronic lymphocytic leukemia of B-cell type not having achieved remission ==